=== PATIENT | female | born 1980 | race Caucasian/White ===

== ENCOUNTER 2023-11-20 12:32 | Emergency (ER) | payer OTHER, SELFPAY ==
[2023-11-20 12:37] VITALS: BP 146/104; PULSE 67; RESP 20; TEMP 37.6; O2SAT 99; BMI 21.1
--- NOTE | 2023-11-20 13:06 | ED_ITS ---
HPI - Nausea/Vomiting/Diarrhea <Gisselle Louise PA-C - Last Filed: 11/20/23 15:27> General Chief complaint: Nausea/Vomiting/Diarrhea Stated complaint: vomiting x7 days Time Seen by Provider: 11/20/23 12:51 Source: patient Mode of arrival: Ambulatory History of Present Illness HPI Narrative: 43-year-old female history of some anxiety, on Suboxone presents with concern for 7 days of nausea and vomiting. Patient states that this came on fairly suddenly a week ago she started having persistent nausea and frequent episodes of vomiting sometimes repetitive vomiting multiple times in a row. She rarely goes for more than a few hours without vomiting in the past week; this morning her mother states that she had repetitive vomiting for an hour or so. She states she has been able to keep very little down small amounts of fluids as trying to keep down electrolyte fluids and water but is having difficulty, last night she was able to keep down a small piece of toast but this is the 1st food she is kept down for the past week. She states she has a history of problems with constipation but has not had constipation recently she says she is been having regular bowel movements including a few loose stools in the past week she had a bowel movement this morning. She does endorse sometimes seeing mucus in her stools but denies seeing any blood or dark stools. She is here today with her mother on the advice of [facility] phone consult suggesting that she come in for further evaluation given the persistence of nausea and vomiting for the past week. She was seen in an ER in [place] on Saturday 3 days ago and says that she had full labs done at that time and was told they were normal she was given promethazine suppositories and has been using those with occasional improvement in symptoms but states she finds they are not very helpful. Prior to this she was taking Zofran but says this was also not helpful. She admits she has been under some increased stress as she recently had a promotion at her job. Otherwise nothing has been different in her routine or activities. She endorses using marijuana occasionally and last used this 5 or 6 days ago. She states she does not drink alcohol. She denies any abdominal pain, flank pain, urinary symptoms, chest pain, shortness of breath, recent illness or any other symptoms. Related Data Home Medications Medication Instructions Recorded Confirmed buprenorphine 2 mg-naloxone 0.5 mg 1 tab sublingual ONCE 11/19/23 11/19/23 sublingual tablet bupropion HCl 300 mg 24 hr tablet, 300 mg PO DAILY 11/19/23 11/19/23 extended release methylphenidate HCl 18 mg 18 mg PO QAM 11/19/23 11/19/23 tablet,extended release 24 hr (Concerta) methylphenidate HCl 36 mg 36 mg PO QAM 11/19/23 11/19/23 tablet,extended release 24 hr (Concerta) norethindrone 1.5 mg-ethinyl 1 tab PO DAILY 11/19/23 11/19/23 estradiol 30 mcg(21)/iron 75 mg(7) tablet (Junel FE 1.5/30 (28)) ondansetron 8 mg disintegrating 8 mg PO Q8H PRN 11/19/23 11/19/23 tablet promethazine 25 mg rectal 0 mg KS 11/19/23 11/19/23 suppository sumatriptan succinate 100 mg tablet 100 mg PO DAILY 11/19/23 11/19/23 trazodone 50 mg tablet 100 mg PO ONCE PM PRN 11/19/23 11/19/23 valacyclovir 500 mg tablet 500 mg PO DAILY 11/19/23 11/19/23 Previous Rx's Medication Instructions Recorded promethazine 25 mg rectal 25 mg KS Q6H PRN nausea and 11/19/23 suppository vomiting #12 ea pantoprazole 40 mg tablet,delayed 40 mg PO DAILY 4 weeks #28 tabs 11/20/23 release Allergies Allergy/AdvReac Type Severity Reaction Status Date / Time Penicillins Allergy Mild Hives Verified 11/19/23 15:43 Sulfa (Sulfonamide Allergy Mild Hives Verified 11/19/23 15:43 Antibiotics) Review of Systems <Gisselle Louise PA-C - Last Filed: 11/20/23 15:27> Review of Systems Narrative: See HPI Patient History <Gisselle Louise PA-C - Last Filed: 11/20/23 15:27> Social History Smoking Status: Never smoker Smoking Status: Never smoker Substance Use Type: marijuana Exam <Gisselle Louise PA-C - Last Filed: 11/20/23 15:27> Narrative Exam Narrative: GENERAL: [43] year old patient appears stated age. Very slim patient, in mild distress, uncomfortable appearing, pale, with dark circles under her eyes, occasional burping. HEAD: Atraumatic. Normocephalic. EYES: Pupils equal round and reactive. Extraocular motions intact. No scleral icterus. No injection or drainage. ENT: Nose without bleeding, purulent drainage. Throat without erythema, tonsillar hypertrophy or exudate. Airway patent. NECK: Trachea midline. Non tender CARDIOVASCULAR: Regular rate and rhythm without murmurs, gallops, or rubs. RESPIRATORY: Clear to auscultation. Breath sounds equal bilaterally. No wheezes, rales, or rhonchi. GASTROINTESTINAL: Abdomen soft, non-tender, nondistended, hypoactive bowel tones, mild discomfort with palpation of the upper abdomen patient endorses desire to vomit/increased nausea but no pain. EXTREMITIES: No edema or joint tenderness, moving all extremities normal gait. BACK: Nontender without deformity or crepitance. No flank or CVA tenderness. NEURO: AOx3. SKIN: No rash or erythema of visible areas Initial Vital Signs Initial Vital Signs: Vital Signs Temperature 99.6 F 11/20/23 12:37 Pulse Rate 67 11/20/23 12:37 Respiratory Rate 20 11/20/23 12:37 Blood Pressure 146/104 H 11/20/23 12:37 Pulse Oximetry 99 11/20/23 12:37 Oxygen Delivery Method Room Air 11/20/23 12:37 <Marko Amaro DO - Last Filed: 11/20/23 16:20> Initial Vital Signs Initial Vital Signs: Vital Signs Temperature 99.6 F 11/20/23 12:37 Pulse Rate 67 11/20/23 12:37 Respiratory Rate 20 11/20/23 12:37 Blood Pressure 146/104 H 11/20/23 12:37 Pulse Oximetry 99 11/20/23 12:37 Oxygen Delivery Method Room Air 11/20/23 12:37 Course <Gisselle Louise PA-C - Last Filed: 11/20/23 15:27> Course Course Narrative: Rechecked the patient she is feeling much better after 750 of her 1 L bolus is in and after the Zofran she received. She does now endorse she has a history of heartburn and reflux issues and has previously been prescribed Prilosec but states she has not been taking this as she is having trouble keeping things down. She is open to IV medicine today to see if this improves her symptoms and 40 of Protonix is ordered. 1403 Patient states she is feeling 100% better after Protonix and fluids. The Zofran has also worked well for her. She appears bright and energetic whereas when she came in she was tired and very uncomfortable and nauseous. We discussed the plan and she is agreeable to following up closely with GI and her PCP and starting on a PPI. She will continue with Zofran and promethazine as needed for nausea. 1500 Orders Ordered: ED Orders 11/20/23 13:00 Magnesium Stat 11/20/23 13:04 EKG-12 Lead Stat 11/20/23 13:12 Complete Blood Count AUTO DIFF Stat Comprehensive Metabolic Panel Stat Lipase Stat 11/20/23 13:21 Covid-19 + FLU A/B + RSV - PCR Stat 11/20/23 14:29 tox [Urine Drug Screen, Rapid] Stat Discontinued Medications Sodium Chloride (Normal Saline 0.9%) 1,000 mls @ 1,000 mls/hr IV BOLUS ONE Stop: 11/20/23 14:01 Last Infusion: 11/20/23 14:16 Dose: Infused Documented By: Admin: 11/20/23 13:20 Dose: 1,000 mls/hr Documented By: BASIM Ondansetron HCl (Ondansetron 4 Mg/2 Ml Inj) 4 mg IV NOW ONE Stop: 11/20/23 13:16 Last Admin: 11/20/23 13:20 Dose: 4 mg Documented By: BASIM Pantoprazole Sodium (Pantoprazole 40 Mg Vial) 40 mg IV NOW ONE Stop: 11/20/23 14:03 Last Admin: 11/20/23 14:10 Dose: 40 mg Documented By: BASIM Vital Signs Vital signs: Vital Signs - 8 hr 11/20/23 12:37 11/20/23 14:56 Temperature 99.6 F Pulse Rate 67 62 Respiratory Rate 20 Blood Pressure 146/104 H 116/66 Pulse Oximetry 99 98 Oxygen Delivery Method Room Air Room Air <Marko Amaro DO - Last Filed: 11/20/23 16:20> Orders Ordered: ED Orders 11/20/23 13:00 Magnesium Stat 11/20/23 13:04 EKG-12 Lead Stat 11/20/23 13:12 Complete Blood Count AUTO DIFF Stat Comprehensive Metabolic Panel Stat Lipase Stat 11/20/23 13:21 Covid-19 + FLU A/B + RSV - PCR Stat 11/20/23 14:29 tox [Urine Drug Screen, Rapid] Stat Discontinued Medications Sodium Chloride (Normal Saline 0.9%) 1,000 mls @ 1,000 mls/hr IV BOLUS ONE Stop: 11/20/23 14:01 Last Infusion: 11/20/23 14:16 Dose: Infused Documented By: Admin: 11/20/23 13:20 Dose: 1,000 mls/hr Documented By: BASIM Ondansetron HCl (Ondansetron 4 Mg/2 Ml Inj) 4 mg IV NOW ONE Stop: 11/20/23 13:16 Last Admin: 11/20/23 13:20 Dose: 4 mg Documented By: BASIM Pantoprazole Sodium (Pantoprazole 40 Mg Vial) 40 mg IV NOW ONE Stop: 11/20/23 14:03 Last Admin: 11/20/23 14:10 Dose: 40 mg Documented By: BASIM Vital Signs Vital signs: Vital Signs - 8 hr 11/20/23 12:37 11/20/23 14:56 Temperature 99.6 F Pulse Rate 67 62 Respiratory Rate 20 Blood Pressure 146/104 H 116/66 Pulse Oximetry 99 98 Oxygen Delivery Method Room Air Room Air MDM - Nausea/Vomiting/Diarrhea <Gisselle Louise PA-C - Last Filed: 11/20/23 15:27> Differential Diagnosis Differential diagnosis: Likely gastroenteritis, dehydration and other (electrolyte abnormality, anxiety, canabis hyperemesis, GERD, gastroparesis) Medical Records Attestation: I reviewed the patient's medical records. Lab Data Attestation: I reviewed the patient's lab results. 11/20/23 13:12 11/20/23 13:12 Labs: Lab Results 11/20/23 11/20/23 11/20/23 Range/Units 13:00 13:12 13:21 WBC 7.7 (4.5-11.0) X10^3/uL RBC 4.76 (4.0-5.2) X10^6/uL Hgb 14.9 (12.0-16.0) g/dL Hct 44.1 (36-46) % MCV 92.6 (80-100) fL MCH 31.2 (26-34) PG MCHC 33.7 (30-36) % RDW 12.7 (11.6-14.8) % Plt Count 263 (150-400) X10^3/uL Neut % (Auto) 82.1 H (50-75) % Lymph % (Auto) 13.9 L (25-40) % Irwin % (Auto) 3.6 (3-14) % Eos % (Auto) 0.2 L (2-4) % Baso % (Auto) 0.2 (0-2) % Neut # (Auto) 6400 (5909-7071) /uL Lymph # (Auto) 1100 (3044-2133) /uL Irwin # (Auto) 300 (0-900) /uL Eos # (Auto) 0 (0-450) /uL Baso # (Auto) 0 (0-100) /uL Sodium 138 (137-145) mmol/L Potassium 3.9 (3.4-5.1) mmol/L Chloride 104 (98-107) mmol/L Carbon Dioxide 26 (22-32) mmol/L BUN 17 (7-17) mg/dL Creatinine 0.85 (0.52-1.04) mg/dL Estimated GFR > 60 (>60) mL/min BUN/Creatinine Ratio 20.0 (6-22) Glucose 105 H (70-100) mg/dL Calcium 9.5 (8.4-10.2) mg/dL Magnesium 2.0 (1.6-2.3) mg/dL Total Bilirubin 0.8 (0.2-1.3) mg/dL AST 35 (14-36) IU/L ALT 20 (<35) IU/L Alkaline Phosphatase 44 (38-126) U/L Total Protein 7.7 (6.3-8.2) g/dL Albumin 4.4 (3.5-5.0) g/dL Globulin 3.3 (1.7-4.1) g/dL Albumin/Globulin Ratio 1.3 (1.0-2.8) Lipase 175 (23-300) U/L U Opiates 300ng/mL cut (Negative) Ur Oxycodone Screen (Negative) Urine Methadone Screen (Negative) Ur Barbiturates Screen (Negative) U Tricyclic Antidepress (Negative) Ur Phencyclidine Scrn (Negative) Ur Amphetamines Screen (Negative) U Methamphetamines Scrn (Negative) Ur MDMA Scrn (Ecstasy) (Negative) U Benzodiazepines Scrn (Negative) Urine Cocaine Screen (Negative) U Marijuana (THC) Screen (Negative) Urine pH (Normal) Urine Specific [place] (Normal) Ur Creatinine (Normal) SARS-CoV-2 (PCR) Negative (Negative) Influenza A (RT-PCR) Flu a negative (NEGATIVE) Influenza B (RT-PCR) Flu b negative (NEGATIVE) RSV (PCR) Negative (Negative) 11/20/23 Range/Units 14:29 WBC (4.5-11.0) X10^3/uL RBC (4.0-5.2) X10^6/uL Hgb (12.0-16.0) g/dL Hct (36-46) % MCV (80-100) fL MCH (26-34) PG MCHC (30-36) % RDW (11.6-14.8) % Plt Count (150-400) X10^3/uL Neut % (Auto) (50-75) % Lymph % (Auto) (25-40) % Irwin % (Auto) (3-14) % Eos % (Auto) (2-4) % Baso % (Auto) (0-2) % Neut # (Auto) (9284-9170) /uL Lymph # (Auto) (0911-8296) /uL Irwin # (Auto) (0-900) /uL Eos # (Auto) (0-450) /uL Baso # (Auto) (0-100) /uL Sodium (137-145) mmol/L Potassium (3.4-5.1) mmol/L Chloride (98-107) mmol/L Carbon Dioxide (22-32) mmol/L BUN (7-17) mg/dL Creatinine (0.52-1.04) mg/dL Estimated GFR (>60) mL/min BUN/Creatinine Ratio (6-22) Glucose (70-100) mg/dL Calcium (8.4-10.2) mg/dL Magnesium (1.6-2.3) mg/dL Total Bilirubin (0.2-1.3) mg/dL AST (14-36) IU/L ALT (<35) IU/L Alkaline Phosphatase (38-126) U/L Total Protein (6.3-8.2) g/dL Albumin (3.5-5.0) g/dL Globulin (1.7-4.1) g/dL Albumin/Globulin Ratio (1.0-2.8) Lipase (23-300) U/L U Opiates 300ng/mL cut Negative (Negative) Ur Oxycodone Screen Negative (Negative) Urine Methadone Screen Negative (Negative) Ur Barbiturates Screen Negative (Negative) U Tricyclic Antidepress Negative (Negative) Ur Phencyclidine Scrn Negative (Negative) Ur Amphetamines Screen Negative (Negative) U Methamphetamines Scrn Negative (Negative) Ur MDMA Scrn (Ecstasy) Negative (Negative) U Benzodiazepines Scrn Negative (Negative) Urine Cocaine Screen Negative (Negative) U Marijuana (THC) Screen Positive H (Negative) Urine pH Normal (Normal) Urine Specific [place] Normal (Normal) Ur Creatinine Normal (Normal) SARS-CoV-2 (PCR) (Negative) Influenza A (RT-PCR) (NEGATIVE) Influenza B (RT-PCR) (NEGATIVE) RSV (PCR) (Negative) Point of Care Testing Test Results Negative Urine Dip Bedside Urine Glucose Negative Bedside Urine Bilirubin - Negative Bedside Urine Ketone - Negative Urine Specific [place] 1.020 Bedside Urine Occult Blood - Negative Bedside Urine pH 6.0 Bedside Urine Protein - Negative Bedside Urine Urobilinogen - Negative Bedside Urine Nitrite - Negative Bedside Urine Leukocytes - Negative Esterase ECG Data Attestation: I personally reviewed and interpreted this ECG as follows: Interpretation: Normal sinus rhythm without ectopy or ST changes noted T-wave inversions V1 and V2 heart rate 61 KS interval 150 milliseconds QRS 86 milliseconds QTC 392 milliseconds Treatment and disposition Shared decision making:: Shared decision-making was used in determining a plan for evaluation in the emergency department and plan for outpatient follow-up MDM Narrative Medical decision making narrative: This is a 43-year-old woman with a history of Suboxone use, opioid free since 2008, mild chronic anxiety who presents with concern for nausea and vomiting for the past 7 days. She was previously seen in an ER in [place] 3 days ago with reportedly unremarkable labs at that time. She presented today with concern for continue persistent nausea and vomiting unrelieved by medications. Labs were again obtained today including CBC, CMP, magnesium, urine dip, urine as well as a urine tox. Urine tox was positive for cannabis but patient did endorse using this in the last 5-6 days has not used it more recently. Her other labs returned unremarkable. An EKG was obtained prior to administering antiemetic given she has been taking antiemetics a lot in the past week. EKG did not show QT prolongation and she was administered IV Zofran 4 mg with significant improvement in her nausea. After further discussion with the patient noting her history of GERD and recent increased stress related to her job Protonix IV was administered 40 mg and patient had 100% resolution of her symptoms stating she felt like she could eat, she is able to keep down fluids well and drinking Gatorade in small sips with success and has not had any repeated vomiting while in the emergency department. Her abdominal exam was fairly unremarkable without tenderness and imaging was not obtained as I have low suspicion for intra-abdominal or infectious process. I am most suspicious for GERD versus possibly gastroparesis and increased stress/anxiety. Discussed these potential etiologies for her symptoms with the patient. She strongly encouraged her to follow-up with gastroenterology for further evaluation as she does have some chronic problems with constipation(which she has not suffered from recently) as well as reflux symptoms. She is advised to follow the brat diet, take the pantoprazole prescribed today; continue with Zofran and promethazine suppositories for nausea as needed she already has these prescribed and additional antiemetics are not prescribed. Patient was fairly ill-appearing on initial presentation and at time of departure she was feeling much better feeling like she was able to try to eat something and keeping fluids down well. Return precautions provided, follow-up plan discussed, all questions answered. <Marko Aamro, DO - Last Filed: 11/20/23 16:20> Lab Data Labs: Lab Results 11/20/23 11/20/23 11/20/23 Range/Units 13:00 13:12 13:21 WBC 7.7 (4.5-11.0) X10^3/uL RBC 4.76 (4.0-5.2) X10^6/uL Hgb 14.9 (12.0-16.0) g/dL Hct 44.1 (36-46) % MCV 92.6 (80-100) fL MCH 31.2 (26-34) PG MCHC 33.7 (30-36) % RDW 12.7 (11.6-14.8) % Plt Count 263 (150-400) X10^3/uL Neut % (Auto) 82.1 H (50-75) % Lymph % (Auto) 13.9 L (25-40) % Irwin % (Auto) 3.6 (3-14) % Eos % (Auto) 0.2 L (2-4) % Baso % (Auto) 0.2 (0-2) % Neut # (Auto) 6400 (3567-9184) /uL Lymph # (Auto) 1100 (2335-6219) /uL Irwin # (Auto) 300 (0-900) /uL Eos # (Auto) 0 (0-450) /uL Baso # (Auto) 0 (0-100) /uL Sodium 138 (137-145) mmol/L Potassium 3.9 (3.4-5.1) mmol/L Chloride 104 (98-107) mmol/L Carbon Dioxide 26 (22-32) mmol/L BUN 17 (7-17) mg/dL Creatinine 0.85 (0.52-1.04) mg/dL Estimated GFR > 60 (>60) mL/min BUN/Creatinine Ratio 20.0 (6-22) Glucose 105 H (70-100) mg/dL Calcium 9.5 (8.4-10.2) mg/dL Magnesium 2.0 (1.6-2.3) mg/dL Total Bilirubin 0.8 (0.2-1.3) mg/dL AST 35 (14-36) IU/L ALT 20 (<35) IU/L Alkaline Phosphatase 44 (38-126) U/L Total Protein 7.7 (6.3-8.2) g/dL Albumin 4.4 (3.5-5.0) g/dL Globulin 3.3 (1.7-4.1) g/dL Albumin/Globulin Ratio 1.3 (1.0-2.8) Lipase 175 (23-300) U/L U Opiates 300ng/mL cut (Negative) Ur Oxycodone Screen (Negative) Urine Methadone Screen (Negative) Ur Barbiturates Screen (Negative) U Tricyclic Antidepress (Negative) Ur Phencyclidine Scrn (Negative) Ur Amphetamines Screen (Negative) U Methamphetamines Scrn (Negative) Ur MDMA Scrn (Ecstasy) (Negative) U Benzodiazepines Scrn (Negative) Urine Cocaine Screen (Negative) U Marijuana (THC) Screen (Negative) Urine pH (Normal) Urine Specific [place] (Normal) Ur Creatinine (Normal) SARS-CoV-2 (PCR) Negative (Negative) Influenza A (RT-PCR) Flu a negative (NEGATIVE) Influenza B (RT-PCR) Flu b negative (NEGATIVE) RSV (PCR) Negative (Negative) 11/20/23 Range/Units 14:29 WBC (4.5-11.0) X10^3/uL RBC (4.0-5.2) X10^6/uL Hgb (12.0-16.0) g/dL Hct (36-46) % MCV (80-100) fL MCH (26-34) PG MCHC (30-36) % RDW (11.6-14.8) % Plt Count (150-400) X10^3/uL Neut % (Auto) (50-75) % Lymph % (Auto) (25-40) % Irwin % (Auto) (3-14) % Eos % (Auto) (2-4) % Baso % (Auto) (0-2) % Neut # (Auto) (3026-9424) /uL Lymph # (Auto) (5277-8286) /uL Irwin # (Auto) (0-900) /uL Eos # (Auto) (0-450) /uL Baso # (Auto) (0-100) /uL Sodium (137-145) mmol/L Potassium (3.4-5.1) mmol/L Chloride (98-107) mmol/L Carbon Dioxide (22-32) mmol/L BUN (7-17) mg/dL Creatinine (0.52-1.04) mg/dL Estimated GFR (>60) mL/min BUN/Creatinine Ratio (6-22) Glucose (70-100) mg/dL Calcium (8.4-10.2) mg/dL Magnesium (1.6-2.3) mg/dL Total Bilirubin (0.2-1.3) mg/dL AST (14-36) IU/L ALT (<35) IU/L Alkaline Phosphatase (38-126) U/L Total Protein (6.3-8.2) g/dL Albumin (3.5-5.0) g/dL Globulin (1.7-4.1) g/dL Albumin/Globulin Ratio (1.0-2.8) Lipase (23-300) U/L U Opiates 300ng/mL cut Negative (Negative) Ur Oxycodone Screen Negative (Negative) Urine Methadone Screen Negative (Negative) Ur Barbiturates Screen Negative (Negative) U Tricyclic Antidepress Negative (Negative) Ur Phencyclidine Scrn Negative (Negative) Ur Amphetamines Screen Negative (Negative) U Methamphetamines Scrn Negative (Negative) Ur MDMA Scrn (Ecstasy) Negative (Negative) U Benzodiazepines Scrn Negative (Negative) Urine Cocaine Screen Negative (Negative) U Marijuana (THC) Screen Positive H (Negative) Urine pH Normal (Normal) Urine Specific [place] Normal (Normal) Ur Creatinine Normal (Normal) SARS-CoV-2 (PCR) (Negative) Influenza A (RT-PCR) (NEGATIVE) Influenza B (RT-PCR) (NEGATIVE) RSV (PCR) (Negative) Point of Care Testing Test Results Negative Urine Dip Bedside Urine Glucose Negative Bedside Urine Bilirubin - Negative Bedside Urine Ketone - Negative Urine Specific [place] 1.020 Bedside Urine Occult Blood - Negative Bedside Urine pH 6.0 Bedside Urine Protein - Negative Bedside Urine Urobilinogen - Negative Bedside Urine Nitrite - Negative Bedside Urine Leukocytes - Negative Esterase Discharge Plan Departure Patient Disposition: Home Clinical Impression: Nausea & vomiting Qualifiers: Vomiting type: unspecified Qualified Code(s): R11.2 - Nausea with vomiting, unspecified Instructions: DI for Vomiting -- Adult Activity Restrictions/Additional Instructions: *You have been diagnosed with [nausea and vomiting] *What to do: *Please continue to take your regular medications as directed. [1 ] New medication prescriptions sent to your pharmacy: [ ] [ ] New medication written as a paper prescription [ ] No new medications given *Please follow up with your primary care provider in 2-3 days, call for an appointment. Let them know you were seen in the Emergency Department and that we ask that you be seen in follow up. We will electronically transmit a record of today's note if your PCP is in our system. You came in with concern for persistent nausea and vomiting for the past 7 days. I can not be 100% sure what is causing this your labs today looked very good you do not appear to have an electrolyte issue any were able to keep fluids down today well we gave you some fluids through her IV we also gave you some antinausea medicine, Zofran through her IV as well as Protonix which is a PPI that is helpful for esophageal and stomach irritation. This seemed to really improve her symptoms and I am hopeful that if you continue a PPI orally for the next few weeks this will help get her symptoms under control. I would strongly encourage you to see a GI doctor you can talk to your primary care provider about this. There is also the possibility that some of her symptoms may be related to gastroparesis as you do have a history of opioid use and chronic constipation (though you have not had constipation recently). I am glad we were able to get you feeling better today in the emergency department. Please be very thoughtful about your intake especially over the next few days as your body adjusts to eating food more consistently again I am hopeful that you will be able to keep food down please follow very simple diet with low fats and things like bananas white rice applesauce and toast, and eat smaller portions until you feel you can handle more. You already have a prescription for Zofran so I am not prescribing additional Zofran you can use this and your suppository as needed for nausea again I am hopeful that the PPI medication will help. *If you do not have a primary care provider please contact the [facility] Resource line at [phone]. They will ask some questions about your medical history and help get you set up with a doctor in the community. *Return to Emergency Department if you should have any new, worsening or concerning symptoms, such as [fever greater than 101 F, shaking chills, worsening pain, persistent vomiting or other bothersome symptoms] Prescriptions: New pantoprazole 40 mg tablet,delayed release (DR/EC) 40 mg PO DAILY 28 Days Qty: 28 0RF No Action ondansetron 8 mg tablet,disintegrating 8 mg PO Q8H PRN promethazine 25 mg suppository 0 mg KS sumatriptan succinate 100 mg tablet 100 mg PO DAILY norethindrone-e.estradiol-iron [ 1.5/30 (28)] 1.5 mg-30 mcg (21)/75 mg (7) tablet 1 tab PO DAILY buprenorphine-naloxone 2-0.5 mg tablet, sublingual 1 tab sublingual ONCE methylphenidate HCl [Concerta] 36 mg tablet extended release 24hr 36 mg PO QAM methylphenidate HCl [Concerta] 18 mg tablet extended release 24hr 18 mg PO QAM valacyclovir 500 mg tablet 500 mg PO DAILY bupropion HCl 300 mg tablet extended release 24 hr 300 mg PO DAILY trazodone 50 mg tablet 100 mg PO ONCE PM PRN promethazine 25 mg suppository 25 mg KS Q6H PRN (Reason: nausea and vomiting) Qty: 12 0RF Referrals: Miscellaneous,Doctor, MD [Primary Care Provider] - Stand Alone Forms: Patient Portal/API ED Sign-out <Marko Amaro, DO - Last Filed: 11/20/23 16:20> Cosign ED Attending Cosignature Attestation: Dr Amaro Co-Sign Statement: I was available for consultation during this patient's emergency department visit. This chart is signed by myself for administrative purposes only. I did not have direct contact with this patient during this visit. They were seen independently by the APC.
[2023-11-20] MEDS: ONDANSETRON 4 MG/2 ML INJ IV (13:20)
[2023-11-20] MEDS: SODIUM CHLORIDE 0.9% 1,000 ML 1000 ML IV (13:20)
[2023-11-20 13:24] LABS: Add Manual Diff / Slide Review NO; Basophils Absolute Auto 0 /uL (0-100); Basophils Percent Auto 0.2 % (0-2); Eosinophils Absolute Auto 0 /uL (0-450); Eosinophils Percent Auto 0.2 % (2-4); Hematocrit 44.1 % (36-46); Hemoglobin 14.9 g/dL (12.0-16.0); Lymphocytes Absolute Auto 1100 /uL (1100-4500); Lymphocytes Percent Auto 13.9 % (25-40); Mean Corpuscular HGB Conc 33.7 % (30-36); Mean Corpuscular Hemoglobin 31.2 PG (26-34); Mean Corpuscular Volume 92.6 fL (80-100); Monocytes Absolute Auto 300 /uL (0-900); Monocytes Percent Auto 3.6 % (3-14); Neutrophils Absolute Auto 6400 /uL (1500-7000); Neutrophils Percent Auto 82.1 % (50-75); Platelet Count 263 X10^3/uL (150-400); Red Blood Cell Count 4.76 X10^6/uL (4.0-5.2); Red Cell Distribution Width 12.7 % (11.6-14.8); White Blood Cell Count 7.7 X10^3/uL (4.5-11.0)
[2023-11-20 13:40] LABS: Alanine Aminotransferase 20 IU/L (<35); Albumin 4.4 g/dL (3.5-5.0); Albumin Globulin Ratio 1.3 (1.0-2.8); Alkaline Phosphatase 44 U/L (38-126); Aspartate Aminotransferase 35 IU/L (14-36); Bilirubin Total 0.8 mg/dL (0.2-1.3); Blood Urea Nitrogen 17 mg/dL (7-17); Calcium 9.5 mg/dL (8.4-10.2); Carbon Dioxide 26 mmol/L (22-32); Chloride 104 mmol/L (98-107); Estimated Glomerular Filt Rate > 60 mL/min (>60); Globulin 3.3 g/dL (1.7-4.1); Glucose 105 mg/dL (70-100); HEMOLYSIS 27 (0-50); Lipase 175 U/L (23-300); Potassium 3.9 mmol/L (3.4-5.1); Sodium 138 mmol/L (137-145); Total Protein 7.7 g/dL (6.3-8.2)
[2023-11-20] MEDS: PANTOPRAZOLE 40 MG VIAL IV (14:10)
[2023-11-20 14:19] LABS: Influenza A - CEPHEID Flu A NEGATIVE (NEGATIVE); Influenza B - CEPHEID Flu B NEGATIVE (NEGATIVE); Respiratory Syncytial Virus Negative (Negative)
[2023-11-20 14:24] LABS: COVID-19 CEPHEID 4-PLEX PCR Negative (Negative)
[2023-11-20 14:41] LABS: Ur Creatinine Normal (Normal); Ur Specific Gravity Normal (Normal); Urine pH Normal (Normal)
[2023-11-20 14:42] LABS: UR Morphine/Opiate cutoff 300 Negative (Negative); Urine Amphetamines Negative (Negative); Urine Barbiturates Negative (Negative); Urine Benzodiazepines Negative (Negative); Urine Cocaine Negative (Negative); Urine MDMA Negative (Negative); Urine Methadone Negative (Negative); Urine Methamphetamines Negative (Negative); Urine Oxycodone Negative (Negative); Urine Phencyclidine Negative (Negative); Urine Tetrahydrocannabinol Positive (Negative); Urine Tricyclic Antidepressant Negative (Negative)
[2023-11-20 14:56] VITALS: BP 116/66; PULSE 62; O2SAT 98
== END 2023-11-20 15:22 | disposition home or self-care (01) ==
PROVIDERS: Emergency Provider Student in an Organized Health Care Education/Training Program
DX: R11.2 Nausea with vomiting, unspecified (principal); Z20.822 Contact with and (suspected) exposure to COVID-19
CPT/HCPCS: 0241U; 36415; 80053; 80305; 81003; 81025; 83690; 83735; 85025; 93005; 93010; 96361; 96374; 96375; 99284; C9113; J2405